=== PATIENT | male | born 1975 | race Caucasian/White ===

== ENCOUNTER 2019-01-04 19:25 | Emergency (ER) | payer SELFPAY ==
[2019-01-04 19:35] VITALS: BP 145/71; PULSE 69; RESP 18; TEMP 36.7; O2SAT 98
--- NOTE | 2019-01-04 20:03 | ED.GENADUL_ITS ---
Discharge Plan Disposition Patient Disposition: HOME Condition: Good Discharge Details Chief Complaint: HeadInjury Clinical Impression: Laceration of scalp Primary Care Provider: None,None ED Provider: Alfredo Montoya Home Meds and New Rx's Prescriptions: No Action No Known Home Meds RF: 0 Discharge Instructions Additional Instructions: May use Tylenol as needed for pain and headache. CAT scans were negative for acute traumatic injury. Return to ED in 10-14 days for suture removal. Return sooner if any sign of infection such as increasing pain, swelling, redness, drainage. Referrals: [facility] [Provider Group] Discharge Data Discharge Date/Time-TO BE ENTERED AT DEPARTURE: 01/04/19 21:11 Medical Decision Making <Nathanael Coreas MD - Last Filed: 01/05/19 13:47> 43-year-old gentleman with an unremarkable past medical history who presents for evaluations of injury sustained earlier in the afternoon while logging. Patient was struck left vertex by a 12 inch diameter branch as he was logging. Denies true LOC but has had persistent headache and feels subjectively altered since the event. Also has mild cervical and bilateral superior trapezius discomfort since the event. Sustained a laceration to the vertex with had bleeding controlled with direct pressure. Denies other significant injury and denies any focal neurological deficit. Exam significant for sagittal laceration left of midline on the vertex with mild surrounding local tenderness. No significant soft tissue swelling or deformity appreciated. Otherwise nonfocal exam with a normal neurological exam, no significant cervical tenderness, and no other evidence of clinically significant injury. Laceration repaired with 3 simple interrupted 4-0 nylon sutures without complication. Discussed low likelihood of clinically significant injury. However, given that patient feels persistently altered, CT head and cervical spine ordered. Care transferred to Dr. Montoya with CT results and disposition (likely discharge home) pending. Condition on transfer of care: Stable. Medical Records Medical records reviewed: Yes I reviewed the patient's medical records. <Alfredo Montoya MD - Last Filed: 01/04/19 21:02> Patient signed out to me pending results of his head and cervical spine CT scan. These have been completed and read by radiology. He has no acute intracranial injury, skull fracture or cervical spine fracture. He remains awake and alert without complaint of. Wound has been repaired by Dr. Coreas. Patient to return in 10-14 days for suture removal. Return sooner if any sign of infection. Discharged in good condition. HPI <Nathanael Coreas MD - Last Filed: 01/05/19 13:47> 43-year-old gent with an unremarkable past medical history. Presents for evaluation of a injury sustained 5 hours ago when a tree branch dropped on his head while logging. He had severe pain in his vertex as well as sustaining a laceration with active bleeding. He denies true LOC. He also said mild neck and superior trapezius pain since injury. He notes persistent head pain most localized towards his vertex and persistent confusion/subjective slowness. He denies visual changes, hearing loss, difficulty with speech, difficulty with stance or gait, or focal extremity weakness. General Date/Time Provider Initiated Documentation: 01/04/19 19:41 . Related Data Home Medications Medication Instructions Recorded Confirmed Unknown [No Known Home Meds] 01/04/19 01/04/19 Allergies Allergy/AdvReac Type Severity Reaction Status Date / Time No Known Allergies Allergy Unverified 01/04/19 19:36 General Stated Complaint: HeadInjury AMADA: 4 <Alfredo Montoya MD - Last Filed: 01/04/19 21:02> 43-year-old gent with an unremarkable past medical history. Presents for evaluation of a injury sustained 5 hours ago when a tree branch dropped on his head while logging. He had severe pain in his vertex as well as sustaining a laceration with active bleeding. He denies true LOC. He also said mild neck and superior trapezius pain since injury. He notes persistent head pain most localized towards his vertex and persistent confusion/subjective slowness. He denies visual changes, hearing loss, difficulty with speech, difficulty with stance or gait, or focal extremity weakness. Review of Systems <Nathanael Coreas MD - Last Filed: 01/05/19 13:47> Review of Systems All systems reviewed & are unremarkable except as noted in HPI and below PFSH <Nathanael Coreas MD - Last Filed: 01/05/19 13:47> Social History Smoking/Tobacco Use Status: Current every day Tobacco Type: cigarettes Alcohol Intake: current Alcohol Intake frequency: 0-2 drinks per day Drug use: Occasionally Substance use type: marijuana Do you feel safe at home: Yes Do you feel safe in your relationship?: Yes Exam <Nathanael Coreas MD - Last Filed: 01/05/19 13:47> Narrative Exam Narrative: Nursing note and vital signs have been reviewed and noted. GENERAL: alert, active, well -hydrated, well-nourished; uncomfortable in appearance. HEENT: normocephalic, 5 cm sagittal laceration through dermis on the left vertex with no active bleeding. PERRLA, EOMI, conjunctiva clear, external ears/canals normal, nasal mucosa normal NECK: supple, full range of motion, no mass, normal lymphadenopathy, no thyromegaly CARDIOVASCULAR: RRR, no murmurs, nl pulses, no edema PULMONARY: nl effort, no audible wheezing or stridor, nl breath sounds with no focal deficit. no chest wall tenderness ABDOMEN: soft, non-tender, non-distended, no mass, no organomegaly EXTREMITY: normal muscle tone, all joints with FROM, no deformity or tenderness SKIN: no exanthem appreciated NEURO: gross motor exam normal, normal stance and gait PSYCH: alert and oriented, Course <Nathanael Coreas MD - Last Filed: 01/05/19 13:47> Vital Signs Temperature 98.1 F 01/04/19 19:35 Pulse 69 01/04/19 19:35 Respiratory Rate 18 01/04/19 19:35 Blood Pressure 145/71 H 01/04/19 19:35 Pulse Oximetry 98 01/04/19 19:35 Temperature 98.1 F 01/04/19 19:35 Temperature Source Skin 01/04/19 19:35 Pulse 69 01/04/19 19:35 Respiratory Rate 18 01/04/19 19:35 Respiratory Effort 01/04/19 19:36 Respiratory Depth Normal 01/04/19 19:36 Respiratory Pattern Normal 01/04/19 19:36 Blood Pressure 145/71 H 01/04/19 19:35 Blood Pressure Position Sitting 01/04/19 19:35 Pulse Oximetry 98 01/04/19 19:35 Oxygen Delivery Method Room Air 01/04/19 19:35 Oxygen Flow Rate 0 01/04/19 19:35 Pain Level 6 01/04/19 19:35 Procedures <Nathanael Coreas MD - Last Filed: 01/05/19 13:47> Laceration Laceration 1: Site: scalp (5 cm sagittal to the left of midline vertex) Side (If applicable): left Size (cm): 5 Description: linear and clean Depth: simple, single layer Local Anesthetic: Lidocaine 1% and with Epi Amount of anesthesia used (mL): 4 Pre-repair: irrigated extensively Skin layer closed with: nylon Size (cm): 4-0 Number of sutures: 3 Technique: simple, interrupted Sign Out <Nathanael Coreas MD - Last Filed: 01/05/19 13:47> Sign Out Data: Sign Out Comment: Evaluated for injury sustained in a logging accident with a 12 inch log striking patient on the left vertex. Patient also sustained a 5 cm sagittal laceration in the same region as well as mild subjective neck and superior trapezius soreness. Exam significant for the laceration as described above and otherwise nonfocal. Laceration repaired without complication. Discussed likelihood of clinically significant injury. However, given persistent subjective altered mentation and mild neck discomfort associated with a significant traumatic injury, CT head and cervical spine ordered. Care transferred with CT results and likely disposition home pending. Last updated by Nathanael Coreas MD at 01/04/19 20:16
--- NOTE | 2019-01-04 20:29 | DI.CT_ITS ---
SYMPTOM/DIAGNOSIS: STRUCK BY LOG, PARIETAL LACERATION NONCONTRAST HEAD CT: A noncontrast cranial CT was performed. No calvarial fracture identified. Note is made of opacification of left maxillary and ethmoid sinuses, presumably chronic sinus disease, underlying mass not excluded on the basis of this examination. Mastoid air cells are clear and temporal bone structures appear intact. Intracranially ventricular system is normal in appearance and there is no evidence of hemorrhage, mass effect or midline shift. CONCLUSION: Changes of maxillary and ethmoid sinus, chronic sinusitis, mass not excluded. Appropriate ENT follow up recommended. CERVICAL SPINE CT: CT examination of the cervical spine was performed utilizing multi slice acquisition and multi planar reconstruction. Images obtained through the lung apices are unremarkable. There is a rounded, subcutaneous, low attenuation mass of the upper back consistent with large sebaceous cyst. No cervical mass or adenopathy is seen. Tracheal laryngeal structures appear intact. There are mild degenerative changes of the mid cervical region. No evidence of acute fracture or dislocation. CONCLUSION: No evidence of acute cervical injury.
--- NOTE | 2019-01-04 20:55 | DI.VRAD_ITS ---
EXAM: CT Head Without Contrast EXAM DATE/TIME: 01/04/2019 7:43 PM CLINICAL HISTORY: 43 years old, male; Injury or trauma; Injury history: 12 inch log vs head; Initial encounter; Blunt trauma (contusions or hematomas); Without loss of consciousness; Injury date: 01/04/2019; Injury details: Struck in head by a 12 log TECHNIQUE: Imaging protocol: Axial computed tomography images of the head/brain without contrast. Coronal and sagittal reformatted images were created and reviewed. Radiation optimization: All CT scans at this facility use at least one of these dose optimization techniques: automated exposure control; mA and/or kV adjustment per patient size (includes targeted exams where dose is matched to clinical indication); or iterative reconstruction. COMPARISON: No relevant prior studies available. FINDINGS: Brain: No hemorrhage. No significant white matter disease. No edema. Ventricles: No ventriculomegaly. Bones/joints: No acute fracture. Sinuses: Opacified left maxillary sinus. Partially opacified ethmoid sinuses. Mastoid air cells: Unremarkable as visualized. No mastoid effusion. Soft tissues: Unremarkable. IMPRESSION: 1. No acute focal intracranial lesions. 2. Opacified ethmoid and left maxillary sinus, possible sinusitis. EXAM: CT Cervical Spine Without Contrast EXAM DATE/TIME: 01/04/2019 7:43 PM CLINICAL HISTORY: 43 years old, male; Injury or trauma; Injury history: 12 inch log vs head; Initial encounter; Blunt trauma (contusions or hematomas); Without loss of consciousness; Injury date: 01/04/2019; Injury details: Struck in head by a 12 log TECHNIQUE: Imaging protocol: Axial computed tomography images of the cervical spine without intravenous contrast. Coronal and sagittal reformatted images were created and reviewed. Radiation optimization: All CT scans at this facility use at least one of these dose optimization techniques: automated exposure control; mA and/or kV adjustment per patient size (includes targeted exams where dose is matched to clinical indication); or iterative reconstruction. COMPARISON: No relevant prior studies available. FINDINGS: Vertebrae: No acute fracture. Normal alignment. Discs/Spinal canal/Neural foramina: Mild degenerative changes within cervical spine with disc space narrowing. Soft tissues: Cutaneous inclusion within soft tissues of the upper back on the right, 3.6 x 4.0 cm. Lungs: Lung apices are normal. IMPRESSION: Mild degenerative changes. No acute fractures or subluxations. Dictated and Authenticated by: Brennon Barajas MD. Ordering:JOHANA Huffman MD
[2019-01-04 21:15] VITALS: BP 144/88; PULSE 68; RESP 20; O2SAT 95
== END 2019-01-04 21:11 | disposition home or self-care (01) ==
PROVIDERS: Emergency Provider Emergency Medicine
DX: S01.01XA Laceration without foreign body of scalp, initial encounter (principal); W22.8XXA Striking against or struck by other objects, initial encounter
CPT/HCPCS: 12004; 99284; 70450; 72125

== ENCOUNTER 2020-03-26 08:30 | Outpatient (REF) | payer BC, SELFPAY ==
[2020-03-26 16:03] LABS: Anion Gap 10.4 mmol/L (3-11); BUN 16 mg/dL (7-18); CO2 25.6 mmol/L (21.0-32.0); CREATININE 1.03 mg/dL (0.70-1.30); Calcium 8.9 mg/dL (8.5-10.1); Calculated LDL 161 mg/dL (<100); Chloride 104 mmol/L (98-107); Cholesterol 217 mg/dL (<200); Glucose 101 mg/dL (74-106); HDL Cholesterol 36 mg/dL (40-60); Potassium 4.2 mmol/L (3.5-5.1); Sodium 140 mmol/L (136-145); Triglyceride 104 mg/dL (<150)
== END 2020-03-26 08:50 ==
LOC: NCHCN 08:30
PROVIDERS: PCP Family Medicine; Visit Provider Physician Assistant
DX: Z00.00 Encounter for general adult medical examination without abnormal findings (principal); I10 Essential (primary) hypertension
CPT/HCPCS: 80048; 80061

== ENCOUNTER 2020-04-03 12:45 | Outpatient (REF) | payer BC, SELFPAY ==
--- NOTE | 2020-04-03 11:50 | SKI_PTH ---
PATIENT: GOKUL RIVERA LOC: [facility] U#:[id number] AGE/SX: 44/M ROOM: RE04/03/[address]: Jerzy Swann : 1975 BED: DIS: 04/03/2020 SPEC #: [id number] RECD: 04/03/20 16:56 STATUS: MARTINEZ REQ #: [id number] ARYA: 04/03/20 11:[address]: Jerzy Swann DEPT: Surgical Specimen RECD BY: Lucy Anton ENTERED: 04/03/20 16:57 SP TYPE: NILSON ELIZAB[facility] DR: Samantha Martin Tissues: 1 - SKIN BIOPSY(SHAVE/PUNCH) Procedures: SKIN LEVEL 4 Comments: [id number]
== END 2020-04-03 13:05 ==
LOC: NCHCN 12:45
PROVIDERS: PCP Family Medicine; Visit Provider Physician Assistant
DX: D22.5 Melanocytic nevi of trunk (principal)
CPT/HCPCS: 88305